=== PATIENT | female | born 1995 | race American Indian/Alaskan Native ===

== ENCOUNTER 2016-08-14 10:14 | Emergency (ER) | payer SELFPAY ==
[2016-08-14 11:24] LABS: Bilirubin,Urine NEG (Negative); Blood,Urine NEG (Negative); Ketones,Urine NEG (Negative); Leukocyte Esterase,Urine NEG (Negative); Mucus,Urine FEW /HPF; Nitrite,Urine NEG (Negative); Protein,Urine <15 mg/dL mg/dL (Negative)
[2016-08-14] MEDS ORDERED: ZOFRAN ODT PO ONE (12:50)
[2016-08-14 13:16] LABS: Basophils % (Auto) 0.7 % (0.0-1.8); Eosinophils % (Auto) 1.2 % (0.0-4.3); Hematocrit 39.8 % (30.3-42.9); Hemoglobin 12.6 gm/dl (10.1-14.3); Mean Corpuscular HGB Conc 32 % (30-34); Mean Corpuscular Hemoglobin 25 pg (28-32); Mean Corpuscular Volume 78 fl (79-97); Platelet Count 353 K/mm3 (140-440); Red Blood Count 5.11 M/mm3 (3.65-5.03); Red Cell Distribution Width 16.2 % (13.2-15.2); White Blood Count 8.1 K/mm3 (4.5-11.0)
[2016-08-14 13:31] LABS: Anion Gap 17 mmol/L; Blood Urea Nitrogen 6 mg/dL (7-17); Calcium 8.9 mg/dL (8.4-10.2); Carbon Dioxide 21 mmol/L (22-30); Chloride 103.5 mmol/L (98-107); Glucose 98 mg/dL (65-100); Sodium 137 mmol/L (137-145)
--- NOTE | 2016-08-14 13:38 | Ultrasound Report ---
TRANSABDOMINAL AND TRANSVAGINAL OBSTETRICAL ULTRASOUND:08/14/16 10:14:00 CLINICAL: Pelvic pain with a positive test. FINDINGS: Transabdominal and transvaginal ultrasound demonstrated a single intrauterine gestational sac measuring 7.1 mm in mean diameter. No definite yolk sac and no pole. Cervix is closed. No subchorionic hematoma. No adnexal mass or free fluid. A complex 1.9 cm cyst of the right ovary. The right ovary measured 3.8 x 2.7 x 3.5cm. The left ovary measured 2.5 x 1.5 x 2.6cm. IMPRESSION: Single uterine at approximately 5 weeks gestation based on gestational sac size. Right corpus luteum cyst. EDC based on ultrasound is 04/13/17 and EDC based on clinical dating is 04/04/17.
[2016-08-14 15:58] VITALS: BP 152/69
--- NOTE | 2016-08-15 08:20 | Emergency Department Report ---
Entered by MISHA FIGUEROA, acting as scribe for MARLEE PARKER PA. ED Abdominal Pain HPI - General Chief Complaint: Abdominal Pain Stated Complaint: VERIFY Time Seen by Provider: 08/14/16 12:45 Source: patient, family Mode of arrival: Ambulatory Limitations: No Limitations - History of Present Illness Initial Comments: 21 y/o female presents to the ED c/o left lower pelvic pain x few weeks. Associated symptoms include nausea and vomiting but she denies vaginal bleeding. Positive vaginal discharge. Denies dysuria and hematuria. Pain is described as cramping and 6/10 on a severity scale. Patient states she had a positive test at home (missed period in july) and she needs test done here to get medicaid . No alleviating or aggravating factors. NKDA. LMP:06/28/16 Complaint: abdominal pain Onset/Timin -: week(s) Location: LLQ (pelvic area) Radiation: none Migration to: no migration Severity: moderate Severity scale (0 -10): 6 Quality: cramping Consistency: intermittent Improves With: nothing Worsens With: nothing Context: other () Associated Symptoms: nausea. denies: vomiting, diarrhea, fever, chills, constipation, dysuria, hematemesis, hematochezia, anorexia, syncope, other ( vaginal bleeding, discharge, dysuria, hematuria) Treatments Prior to Arrival: other (none) - Related Data LMP Date: 06/28/16 LMP (females 10-50): Previous Rx's Medication Instructions Recorded Last Taken Type Vit No.130/Iron/FA 1 each PO QDAY #30 tablet 08/14/16 Unknown Rx [ Tablet] metroNIDAZOLE 0.75% [Vandazole 1 applicator VG QHS #1 tube 08/14/16 Unknown Rx 0.75% VAGINAL] Allergies Allergy/AdvReac Type Severity Reaction Status Date / Time No Known Allergies Allergy Verified 08/14/16 10:21 ED Review of Systems Comment: All other systems reviewed and negative Constitutional: no symptoms reported Eyes: denies: eye pain, eye discharge Respiratory: no symptoms reported Cardiovascular: denies: chest pain, palpitations, edema, syncope Gastrointestinal: abdominal pain (pelvic pain), nausea. denies: vomiting, diarrhea, constipation Genitourinary: discharge. denies: dysuria, hematuria, other (vaginal bleeding) Musculoskeletal: denies: back pain, joint swelling, arthralgia, myalgia Skin: denies: rash Neurological: denies: headache, weakness, numbness, paresthesias, confusion, abnormal gait, vertigo ED Past Medical Hx - Past Medical History Previous Medical History?: No - Surgical History Past Surgical History?: No - Family History Family history: no significant - Social History Smoking Status: Never Smoker Substance Use Type: Marijuana - Medications Home Medications: Home Medications Medication Instructions Recorded Confirmed Last Taken Type Vit No.130/Iron/FA 1 each PO QDAY #30 tablet 08/14/16 Unknown Rx [ Tablet] metroNIDAZOLE 0.75% [Vandazole 1 applicator VG QHS #1 tube 08/14/16 Unknown Rx 0.75% VAGINAL] ED Physical Exam - General Limitations: No Limitations General appearance: alert, in no apparent distress - Head Head exam: Present: atraumatic, normocephalic, normal inspection - Eye Eye exam: Present: normal appearance, PERRL, EOMI. Absent: periorbital swelling , periorbital tenderness Pupils: Present: normal accommodation - ENT ENT exam: Present: normal exam, normal orophraynx, mucous membranes moist, TM's normal bilaterally, normal external ear exam - Neck Neck exam: Present: normal inspection, full ROM. Absent: tenderness, meningismus, lymphadenopathy - Respiratory Respiratory exam: Present: normal lung sounds bilaterally. Absent: respiratory distress, wheezes, rales, rhonchi, stridor, chest wall tenderness - Cardiovascular Cardiovascular Exam: Present: regular rate, normal rhythm, normal heart sounds - GI/Abdominal GI/Abdominal exam: Present: soft, normal bowel sounds. Absent: distended, tenderness, guarding, rebound, rigid, organomegaly, mass, bruit - External exam: Present: normal external exam. Absent: erythema, swelling, lesions, lacerations, ecchymosis, bleeding Speculum exam: Present: vaginal discharge, cervical discharge. Absent: erythema , vaginal bleeding, foreign body, tissue, laceration Bi-manual exam: Present: normal bi-manual exam. Absent: cervical motion tendernes, adnexal tenderness, adnexal mass, uterine enlargement, uterine tenderness - Expanded Exam Expanded Female exam: Absent: vaginal laceration, tissue present in vagina, herpetic lesions, vulvar erythema, vulvar tenderness, foreign body External exam: Present: normal Amniotic fluid: Present: none Speculum exam: Present: cervical OS closed, vaginal discharge. Absent: vaginal bleeding - Extremities Exam Extremities exam: Present: normal inspection, full ROM. Absent: tenderness, normal capillary refill, pedal edema, joint swelling, calf tenderness - Back Exam Back exam: Present: normal inspection, full ROM. Absent: tenderness - Neurological Exam Neurological exam: Present: alert, oriented X3 - Psychiatric Psychiatric exam: Present: normal affect, normal mood - Skin Skin exam: Present: warm, dry, intact, normal color. Absent: rash ED Course Vital Signs 08/14/16 08/14/16 10:25 15:10 Temperature 98.9 F Pulse Rate 96 H 78 Respiratory 17 16 Rate Blood Pressure 136/76 Blood Pressure 152/69 [Left] O2 Sat by Pulse 99 100 Oximetry - Reevaluation(s) Reevaluation #1: 08/14/16 14:52 Patient given Zofran 8 MG ODT in ED for nausea. Tolerating PO liquids well. No changes in abdominal assessment. ED Medical Decision Making - Lab Data Result diagrams: 08/14/16 12:56 08/14/16 12:56 Lab Results 08/14/16 08/14/16 08/14/16 Range/Units 10:32 10:48 12:48 WBC (4.5-11.0) K/mm3 RBC (3.65-5.03) M/mm3 Hgb (10.1-14.3) gm/dl Hct (30.3-42.9) % MCV (79-97) fl MCH (28-32) pg MCHC (30-34) % RDW (13.2-15.2) % Plt Count (140-440) K/mm3 Lymph % (Auto) (13.4-35.0) % Grand % (Auto) (0.0-7.3) % Eos % (Auto) (0.0-4.3) % Baso % (Auto) (0.0-1.8) % Lymph # (1.2-5.4) K/mm3 Grand # (0.0-0.8) K/mm3 Eos # (0.0-0.4) K/mm3 Baso # (0.0-0.1) K/mm3 Seg Neutrophils % (40.0-70.0) % Seg Neutrophils # (1.8-7.7) K/mm3 Sodium (137-145) mmol/L Potassium (3.6-5.0) mmol/L Chloride (98-107) mmol/L Carbon Dioxide (22-30) mmol/L Anion Gap mmol/L BUN (7-17) mg/dL Creatinine (0.7-1.2) mg/dL Estimated GFR ml/min BUN/Creatinine Ratio % Glucose (65-100) mg/dL Calcium (8.4-10.2) mg/dL HCG, Qual Positive (Negative) HCG, Quant 1967 H (0-4) mIU/mL Urine Color Yellow (Yellow) Urine Turbidity Clear (Clear) Urine pH 5.0 (5.0-7.0) Ur Specific [place] 1.024 (1.003-1.030) Urine Protein <15 mg/dl (Negative) mg/dL Urine Glucose (UA) Neg (Negative) mg/dL Urine Ketones Neg (Negative) mg/dL Urine Blood Neg (Negative) Urine Nitrite Neg (Negative) Urine Bilirubin Neg (Negative) Urine Urobilinogen 2.0 (<2.0) mg/dL Ur Leukocyte Esterase Neg (Negative) Urine WBC (Auto) 1.0 (0.0-6.0) /HPF Urine RBC (Auto) 4.0 (0.0-6.0) /HPF U Epithel Cells (Auto) 7.0 (0-13.0) /HPF Urine Mucus Few /HPF 08/14/16 08/14/16 Range/Units 12:56 12:56 WBC 8.1 (4.5-11.0) K/mm3 RBC 5.11 H (3.65-5.03) M/mm3 Hgb 12.6 (10.1-14.3) gm/dl Hct 39.8 (30.3-42.9) % MCV 78 L (79-97) fl MCH 25 L (28-32) pg MCHC 32 (30-34) % RDW 16.2 H (13.2-15.2) % Plt Count 353 (140-440) K/mm3 Lymph % (Auto) 39.8 H (13.4-35.0) % Grand % (Auto) 9.0 H (0.0-7.3) % Eos % (Auto) 1.2 (0.0-4.3) % Baso % (Auto) 0.7 (0.0-1.8) % Lymph # 3.2 (1.2-5.4) K/mm3 Grand # 0.7 (0.0-0.8) K/mm3 Eos # 0.1 (0.0-0.4) K/mm3 Baso # 0.1 (0.0-0.1) K/mm3 Seg Neutrophils % 49.3 (40.0-70.0) % Seg Neutrophils # 4.0 (1.8-7.7) K/mm3 Sodium 137 (137-145) mmol/L Potassium 4.0 (3.6-5.0) mmol/L Chloride 103.5 (98-107) mmol/L Carbon Dioxide 21 L (22-30) mmol/L Anion Gap 17 mmol/L BUN 6 L (7-17) mg/dL Creatinine 0.6 L (0.7-1.2) mg/dL Estimated GFR > 60 ml/min BUN/Creatinine Ratio 10.00 % Glucose 98 (65-100) mg/dL Calcium 8.9 (8.4-10.2) mg/dL HCG, Qual (Negative) HCG, Quant (0-4) mIU/mL Urine Color (Yellow) Urine Turbidity (Clear) Urine pH (5.0-7.0) Ur Specific [place] (1.003-1.030) Urine Protein (Negative) mg/dL Urine Glucose (UA) (Negative) mg/dL Urine Ketones (Negative) mg/dL Urine Blood (Negative) Urine Nitrite (Negative) Urine Bilirubin (Negative) Urine Urobilinogen (<2.0) mg/dL Ur Leukocyte Esterase (Negative) Urine WBC (Auto) (0.0-6.0) /HPF Urine RBC (Auto) (0.0-6.0) /HPF U Epithel Cells (Auto) (0-13.0) /HPF Urine Mucus /HPF Wet prep reveal positive clue cells, no trichomonas or yeast cells. Gonorrhea and chlamydia is pending. - Radiology Data Radiology results: report reviewed Ultrasound transvaginal and pelvic less than 14 weeks revealed single intrauterine at approximately 5 weeks gestation based on gestational sac size. Right corpus p.m. this. Expected date of delivery is 04/13/2017 chorionic hematoma noted no definite yolk sac or no pole. - Medical Decision Making ED course: Patient here report that she has a positive home test this morning and she is here to confirm her . She is also complaining of pelvic pain to finger going on and off over the past 2 weeks. She reports nausea and she was given Zofran 8 mg ODT which relieved her nausea and she was able to drink oral fluids without any vomiting. I discussed lab results and urinalysis, positive and hormone tests along with ultrasound results with patient. She voiced understanding. I also discussed with her that she has bacterial vaginosis and will be treated with vaginal suppository for 7 days. I told patient she needs to start taking vitamin and she needs to follow up with [facility]. Patient is not concerned for STDs and she says she'll wait until her gonorrhea and chlamydia test comes back before treatment. Patient is stable and discharged home in stable condition with prescription for Vandazole vaginally daily at bedtime and vitamin. ED Disposition Clinical Impression: Threatened miscarriage in early , Pelvic pain during , Complex cyst of right ovary, Bacterial vaginosis, Nausea/vomiting in Vaginal discharge during Qualifiers: Trimester: first trimester Qualified Code(s): O26.891 - Other specified related conditions, first trimester; N89.8 - Other specified noninflammatory disorders of vagina Disposition: DC-01 TO HOME OR SELFCARE Is pt being admited?: No Does the pt Need Aspirin: No Condition: Stable Instructions: Threatened Miscarriage (ED), Bacterial Vaginosis (ED), Ovarian Cyst (ED), Acute Nausea and Vomiting (ED), Abdominal Pain (ED) Additional Instructions: follow up with [facility] that I recommended for you. Use vaginal suppository for bacterial vaginosis as discussed Increase her fluid intake Start taking vitamin Prescriptions: metroNIDAZOLE 0.75% [Vandazole 0.75% VAGINAL] 1 applicator VG QHS #1 tube Vit No.130/Iron/FA [ Tablet] 1 each PO QDAY #30 tablet Referrals: [facility] [Provider Group] - 2-3 Days (Keyanna Tripathi) Forms: Accompanied Note, STI Treatment and Prevention, Work/School Release Form (ED) This documentation as recorded by the scribe,FIGUEROA,MISHA,accurately reflects the service I personally performed and the decisions made by me,MARLEE PARKER PA.
== END 2016-08-14 15:10 | disposition home or self-care (01) ==
LOC: ED 10:14
DX: O20.0 Threatened abortion (principal); O21.9 Vomiting of pregnancy, unspecified; O26.891 Other specified pregnancy related conditions, first trimester; N89.8 Other specified noninflammatory disorders of vagina; N76.0 Acute vaginitis; R10.2 Pelvic and perineal pain; Z3A.01 Less than 8 weeks gestation of pregnancy
CPT/HCPCS: 36415; 76801; 76817; 80048; 81001; 84702; 84703; 85025; 87210; 87591; Q0162